=== PATIENT | female | born 1995 | race Hispanic/Latino ===

== ENCOUNTER 2024-04-26 19:53 | Inpatient (IN) | payer OTHER ==
[~2024-04-26] VITALS: Ht 172.7 cm; Wt 88.5 kg
[2024-04-26] MEDS: ACETAMINOPHEN 325 MG TAB PO ONE (20:36)
[2024-04-26] MEDS: SODIUM CHLORIDE 0.9% IV SCH (20:39)
[2024-04-26] MEDS ORDERED: IOPAMIDOL 370 MG/ML 100 ML INFUS..BTL INJ ONE (20:45)
[2024-04-26] MEDS ORDERED: Morphine 2mg Syringe 2 MG/ML SYR IV PRN (22:15)
[2024-04-26] MEDS ORDERED: ONDANSETRON HCL INJ 2MG/ML 2ML 2 MG/ML VIAL IV PRN (22:15)
[2024-04-26] MEDS: KETOROLAC TROMETHAMINE 30 MG/ML VIAL IV STA (22:27)
[2024-04-26 23:24] VITALS: PULSE 99; RESP 18; TEMP 99.5
[2024-04-26 23:55] VITALS: BP 124/70; PULSE 100; RESP 18; TEMP 100.8; O2SAT 100
[2024-04-27] VITALS (7 sets, daily range): BP systolic 95–130; BP diastolic 55–73; PULSE 72–111; RESP 18–19; TEMP 97.8–102; O2SAT 97–100
[2024-04-27] MEDS: ACETAMINOPHEN 325 MG TAB PO PRN ×2 (00:37→17:25)
[2024-04-27] MEDS ORDERED: POLYETHYLENE GLYCOL 3350 17 GM PACK PO PRN (02:45)
[2024-04-27] MEDS ORDERED: MAGNESIUM/ALUMINUM/SIMETHICONE 30 ML UDC PO PRN (02:45)
[2024-04-27] MEDS ORDERED: GUAIFENESIN/DEXTROMETHORPHAN LIQD 5 ML UDC PO PRN (02:45)
[2024-04-27] MEDS ORDERED: HYDRALAZINE HCL 20 MG/ML VIAL IV PRN (02:45)
[2024-04-27] MEDS ORDERED: MELATONIN 3 MG TAB PO PRN (02:45)
[2024-04-27] MEDS ORDERED: DOCUSATE SODIUM 100 MG CAP PO SCH (09:00)
[2024-04-27] MEDS: DOCUSATE SODIUM 100 MG CAP PO SCH (09:36)
[2024-04-27] MEDS: MULTIVITAMINS/MINERALS TAB PO SCH (09:36)
[2024-04-27] MEDS: SODIUM CHLORIDE 0.9% 250ML 250 ML ONE (09:56)
[2024-04-27] MEDS: ENOXAPARIN SOD INJ 40 MG/0.4 ML SYR SC SCH (17:00)
[2024-04-28] VITALS (7 sets, daily range): BP systolic 110–130; BP diastolic 58–79; PULSE 72–97; RESP 16–18; TEMP 97.5–100.4; O2SAT 96–100
[2024-04-28 05:10] LABS: BASOPHILS % 0.3 % (0.0-1.0); EOSINOPHILS % 0.3 % (0.0-6.0); HEMATOCRIT 35.5 % (34.2-44.1); HEMOGLOBIN 11.8 g/dL (12.0-16.0); LYMPHOCYTES # (AUTO) 1.7 (1.0-3.2); LYMPHOCYTES % 16.4 % (18.0-39.1); MEAN CORPUSCULAR HGB CONC 33.2 g/dL (31-35); MEAN CORPUSCULAR VOLUME 93.2 fL (81-99); MONOCYTES # (AUTO) 1.1 (0.2-0.8); NEUTROPHILS # (AUTO) 7.2 (2.1-6.9); NEUTROPHILS % 71.5 % (38.7-80.0); PLATELET COUNT 166 x10e3/uL (140-360); RED BLOOD COUNT 3.81 x10e6/uL (3.6-5.1); RED CELL DISTRIBUTION WIDTH 12.1 % (11.7-14.4); WHITE BLOOD COUNT 10.05 x10e3/uL (4.8-10.8)
[2024-04-28 05:33] LABS: ALBUMIN/GLOBULIN RATIO 0.9 (0.8-2.0); ANION GAP 11.4 mmol/L (8-16); BILIRUBIN,TOTAL 0.3 mg/dL (0.2-1.2); CALCIUM 8.5 mg/dL (8.4-10.2); CREATININE, SERUM 0.84 mg/dL (0.57-1.11); TOTAL PROTEIN 6.2 g/dL (6.5-8.1)
[2024-04-28 05:55] LABS: POTASSIUM 3.4 mmol/L (3.5-5.1)
[2024-04-28] MEDS: POTASSIUM CHLORIDE 20 MEQ TAB CR PO ONE (12:53)
[2024-04-28] MEDS: IBUPROFEN 400 MG TAB PO PRN (19:27)
[2024-04-29] VITALS: BP 111/76; PULSE 62; RESP 17; TEMP 97.5; O2SAT 100
[2024-04-29 04:00] VITALS: BP 114/76; PULSE 70; RESP 17; TEMP 98; O2SAT 100
[2024-04-29 08:21] VITALS: BP 120/73; PULSE 79; RESP 16; TEMP 97.6; O2SAT 100
[2024-04-29 09:33] VITALS: BP 120/73; PULSE 79; RESP 16; TEMP 97.6; O2SAT 100
[2024-04-29] MEDS ORDERED: CIPRO500 MG PO (11:01)
[2024-04-29 12:32] VITALS: BP 115/67; PULSE 75; RESP 18; TEMP 97.9; O2SAT 100
[2024-04-29] MEDS ORDERED: CEFTRIAXONE 2 GM in SODIUM CHLORIDE 0.9% 100 ML IV SCH (16:00)
== END 2024-04-29 12:35 | disposition home or self-care (01) | DRG 872 ==
LOC: FSED 19:56 → ERHOLD 22:21 → MED/SURG2 23:38 → OBSVTOIN 04-28 12:02
PROVIDERS: ADMIT Internal Medicine Critical Care Medicine; ATTEND Internal Medicine Critical Care Medicine
PROC: 3E0333Z Introduction of Anti-inflammatory into Peripheral Vein, Percutaneous Approach (ICD-10-PCS; principal; 2024-04-27)
DX: A41.51 Sepsis due to Escherichia coli [E. coli] (principal); Z16.24 Resistance to multiple antibiotics; N10 Acute pyelonephritis; N30.90 Cystitis, unspecified without hematuria; N93.8 Other specified abnormal uterine and vaginal bleeding; D25.9 Leiomyoma of uterus, unspecified
CPT/HCPCS: 36415; 74177; 76830; 76856; 80053; 80076; 80307; 81003; 81025; 83605; 85025; 87040; 87071; 87086; 87186; 87205; 99252; 99284; G0378; J0696; J1650; J1885; J2185; J7030; J7050; Q9967